=== PATIENT | female | born 1975 | race Caucasian/White ===

== ENCOUNTER 2020-01-09 08:39 | Emergency (ER) | payer OTHER ==
[~2020-01-09] VITALS: Ht 167.6 cm; Wt 79.4 kg
[2020-01-09] MEDS ORDERED: ADVIL200 MG PO (08:55)
[2020-01-09] MEDS ORDERED: TIZANIDINE HCL2 MG PO (08:55)
[2020-01-09] MEDS ORDERED: BUPROPION XL150 MG PO (08:55)
== END 2020-01-09 11:07 | disposition home or self-care (01) ==
LOC: ED 08:39
DX: M54.2 Cervicalgia (principal); Z79.899 Other long term (current) drug therapy
CPT/HCPCS: 70491; 71046; 80053; 85025; 96360; 99284-25; J7040; Q9967

== ENCOUNTER 2020-05-18 07:25 | Day surgery (SDC) | payer OTHER ==
[~2020-05-18] VITALS: Ht 320 cm; Wt 86.2 kg
[~2020-05-18 07:25] MED LIST: ADVIL200 MG PO; BUPROPION XL150 MG PO; TIZANIDINE HCL2 MG PO
[2020-05-18] MEDS ORDERED: HYDROCODON-ACE1 EA10 PO (09:19)
--- NOTE | 2020-05-18 09:24 | NUR ---
PATIENT BACK TO ROOM, NO PACU RECOVERY. PATIENT AWAKE ANSWERING QUESTIONS. REPORTS NO PAIN. REPORT FROM VIOLA PIZARRO.
--- NOTE | 2020-05-18 10:06 | NUR ---
PATIENT SITTING UP IN BED, COMPLAINTS OF DRUG SIDE EFFECTS STATES " I DIDN'T WANT THIS FEELING AFTER SURGERY, MY HAD IS SPINNING". PATIENT EATING ICE CHIPS, NO OTHER NEEDS AT THIS TIME. RECHECKED BP 152/74 P84 RR16
--- NOTE | 2020-05-18 10:30 | NUR ---
VIOLA PIZARRO UNAVAILABLE, BRYSON PIZARRO TO ROOM TO REASSURE PATIENT OF SIDE EFFECTS OF KETAMINE. BRYSON PIZARRO EXPLAINED PROCESS OF BLOCK AND TOURNEQUETTE PAIN,AND THE POSITIVE EFFECTS OF PAIN CONTROL WITH KETAMINE. PATIENT VERBALIZED UNERSTANDING, CONTINUES TO FEEL DIZZY/ NAUTIOUS. NEW ORDER FOR 4MG IV ZOFRAN. PATIENT SITTING UP IN CHAIR DRESSING SELF.
--- NOTE | 2020-05-18 10:45 | NUR ---
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 PROVIDED DISCHARGE EDUCATION TO PATIENT AND FRIEND. PROVIDED PATIENT WITH EMESIS BAG FOR RIDE HOME. PATIENT REPORTED ZOFRAN IMPROVING FEELINGS OF NAUTIOUS. PATIENT UP AND VOIDED IN BATHROOM, STEADY ON FEET. RATES PAIN 0/10 ON PAIN SCALE.
--- NOTE | 2020-05-21 07:01 | OR ---
[facility] [address], [place] [address] Signed DATE OF OPERATION: 05/18/2020 SURGEON: Meaghan Ferrer MD PREOPERATIVE DIAGNOSIS: Carpal tunnel syndrome, bilateral. POSTOPERATIVE DIAGNOSIS: Carpal tunnel syndrome, bilateral. PROCEDURE PERFORMED: Left carpal tunnel release. MOVIE PRODUCER: None. ANESTHESIA: [place] block. TOURNIQUET TIME: 20 minutes. BRIEF HISTORY: Gilda is a 45-year-old female with progressive worsening of numbness and tingling in both hands. The risks and benefits of operative treatment were discussed and she elected to proceed with left. DESCRIPTION OF PROCEDURE: Once consent was obtained, she was taken to the operating room, left on the on the day surgery [facility]. Hand table was brought in and the arm was prepped and draped in a standard sterile fashion. Standard mini incision technique was undertaken, 1.5 cm incision was made in the distal wrist crease, carried through skin and subcutaneous tissue. Transverse carpal ligament was identified after retraction of the palmaris longus. The ligament was dissected free of overlying soft tissue under loupe magnification. It was then released proximally 1 cm and distally to its distal extent. This was palpated using a [place] and found to be completely released. The wound was copiously irrigated with antibiotic solution, closed with 3-0 nylon. Injected 7 mL 0.25% plain Marcaine at the end. The wound was dressed with bacitracin, Adaptic, 4 x 8s, and gauze. She tolerated the procedure well. All sponge, needle, and instrument counts Electronically Signed By: MEAGHAN FERRER MD 05/21/20 0701 PATIENT NAME: GILDA PORTER OPERATIVE REPORT DATE OF : 79 REPORT #: [id number] PHYSICIAN: MEAGHAN FERRER MD PCP: CURRY SALGADO MD REPORT IS CONFIDENTIAL AND NOT TO BE RELEASED WITHOUT AUTHORIZATION [facility] [address] [facility] [place], [place] [address] Signed were correct. Meaghan Ferrer MD BA/MODL /[id number] Copies: ~ Electronically Signed By: MEAGHAN FERRER MD 05/21/20 0701 PATIENT NAME: GILDA PORTER OPERATIVE REPORT DATE OF : 79 REPORT #: [id number] PHYSICIAN: MEAGHAN FERRER MD PCP: CURRY SALGADO MD REPORT IS CONFIDENTIAL AND NOT TO BE RELEASED WITHOUT AUTHORIZATION
== END 2020-05-18 10:50 | disposition home or self-care (01) ==
LOC: DS 07:25
PROVIDERS: Specialist
PROC: 01N50ZZ Release Median Nerve, Open Approach (ICD-10-PCS; principal; 2020-05-18 09:45)
DX: G56.03 Carpal tunnel syndrome, bilateral upper limbs (principal); Z79.899 Other long term (current) drug therapy; Z87.891 Personal history of nicotine dependence
CPT/HCPCS: 01810; J0690; J1100; J1885; J2250; J2405; J2704; J2765; J3010; J7121

== ENCOUNTER 2020-06-04 09:55 | Day surgery (SDC) | payer OTHER ==
[~2020-06-04] VITALS: Ht 167.6 cm; Wt 83.9 kg
[~2020-06-04 09:55] MED LIST changes: +HYDROCODON-ACE1 EA10 PO
--- NOTE | 2020-06-04 11:53 | NUR ---
PATIENT IS UP TO THE BATHROOM, WALKING HER IV POLE. PATIENT DOES WELL WITH THAT. SHE IS BACK IN BED AND HER CALL LIGHT IS WITHIN REACH.
--- NOTE | 2020-06-04 13:22 | NUR ---
06/04/20 1322 Nura Patino ARRIVES AWAKE TO PACU. DENIES NAUSEA OR PAIN THROUGHOUT. REVIEWING DISCHARGE INSTRUCTIONS WITH PT AND AT BEDSIDE.
--- NOTE | 2020-06-05 07:31 | OR ---
[facility] [address] [place], [place] [address] Signed DATE OF OPERATION: 06/04/2020 SURGEON: Meaghan Ferrer MD PREOPERATIVE DIAGNOSIS: Carpal tunnel syndrome, bilateral. POSTOPERATIVE DIAGNOSIS: Carpal tunnel syndrome, bilateral. PROCEDURE PERFORMED: Right carpal tunnel release. DESIGN INSERTER: HAY Resendiz. ANESTHESIA: [place] block. TOURNIQUET TIME: 20 minutes. 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 She had undergone successful left release and wished to proceed with the right. DESCRIPTION OF PROCEDURE: Once consent was obtained, she was taken to the operating room. After adequate anesthesia, the arm was prepped and draped in a standard sterile fashion. Carpal tunnel was approached through a 1.5 cm incision in the distal wrist crease carried through skin and subcutaneous tissue. The palmaris longus was identified, retracted and protected. Transverse carpal ligament was then identified under loupe magnification and dissected free of overlying soft tissue proximally and distally. It was then released proximally about a cm and half and distally to the distal extent. This was palpated using a [place] and found to be completely released. The wound was then copiously irrigated with antibiotic solution, closed with 3-0 nylon dressed with bacitracin, Adaptic, 4 x 8s, and gauze. We did inject the soft tissues with 6 mL of 0.5% plain Marcaine. She tolerated the procedure well. All sponge, needle, and instrument counts were correct. Electronically Signed By: MEAGHAN FERRER MD 06/05/20 0731 PATIENT NAME: GILDA PORTER OPERATIVE REPORT DATE OF : 79 REPORT #: [id number] PHYSICIAN: MEAGHAN FERRER MD PCP: CURRY SALGADO MD REPORT IS CONFIDENTIAL AND NOT TO BE RELEASED WITHOUT AUTHORIZATION [address] [place] [address] Signed Meaghan Ferrer MD /[facility] /[id number] Copies: ~ Electronically Signed By: MEAGHAN FERRER MD 06/05/20 0731 PATIENT NAME: GILDA PORTER OPERATIVE REPORT DATE OF : 79 REPORT #: [id number] PHYSICIAN: MEAGHAN FERRER MD PCP: CURRY SALGADO MD REPORT IS CONFIDENTIAL AND NOT TO BE RELEASED WITHOUT AUTHORIZATION
== END 2020-06-04 13:35 | disposition home or self-care (01) ==
LOC: DS 09:55
PROVIDERS: Specialist
PROC: 01N50ZZ Release Median Nerve, Open Approach (ICD-10-PCS; principal; 2020-06-04 11:00)
DX: G56.01 Carpal tunnel syndrome, right upper limb (principal); Z87.891 Personal history of nicotine dependence; Z98.890 Other specified postprocedural states
CPT/HCPCS: 01810; J0690; J2704